=== PATIENT | male | born 1990 | race Caucasian/White ===

== ENCOUNTER 2018-08-24 13:00 | Emergency (ER) | payer OTHER ==
[~2018-08-24] VITALS: Ht 167.6 cm; Wt 71.7 kg
[2018-08-24 13:07] VITALS: BP 137/87
--- NOTE | 2018-08-24 13:15 | NUR ---
PATIENT C/O FACIAL NUMBNESS. NO S/SX OF STROKE NOTED. PATIENT PLACED ON THE MONITOR. MD AT BEDSIDE FOR EVAL.
== END 2018-08-24 13:32 | disposition home or self-care (01) ==
LOC: ER 13:02
DX: R20.2 Paresthesia of skin (principal); F41.9 Anxiety disorder, unspecified; I10 Essential (primary) hypertension
CPT/HCPCS: Z7502